=== PATIENT | female | born 1950 | race Caucasian/White ===

== ENCOUNTER → 2018-11-17 | Day surgery (SDC) | payer MEDICARE, BC ==
[~2018-11-17] MED LIST: Lactated Ringers 1,000 ML IV SCH; Propofol 200 MG/20 ML SDV IV ONE
--- NOTE | 2018-11-20 08:57 | OR ---
DATE OF OPERATION: 11/17/2018 PREOPERATIVE DIAGNOSIS: SCREENING COLONOSCOPY. POSTOPERATIVE DIAGNOSIS: SCREENING COLONOSCOPY. SURGEON: Horacio Contreras MD PROCEDURE: FULL-LENGTH COLONOSCOPY. ANESTHESIA: MAC via [employer]ER. COMPLICATIONS: None. SPECIMEN: None. FINDINGS: 1. Full-length colonoscopy. 2. Yuis-[id number]-pbrgoxph sigmoid diverticulosis. RECOMMENDATIONS: Followup colonoscopy in 10 years. INDICATIONS: The patient had a prior colonoscopy approximately 10 years ago. She is due for a 10-year followup. DESCRIPTION OF PROCEDURE: The patient was prepped and draped, placed in the left lateral decubitus position. A lubricated Olympus colonoscope was inserted and easily advanced to the cecum. Direct visualization of the ileocecal valve and appendiceal orifice was accomplished. Bowel prep was adequate. Upon withdrawal, throughout the entire length of the colon, I could find no signs of polyps, mass, ulceration, bleeding sites. No vascular abnormalities or signs of colitis. The patient has moderate to severe diverticular disease in the sigmoid and rectosigmoid regions. No inflammatory changes were seen. The rectal vault was benign. Retroflexion showed no perianal lesions. Air was suctioned. Scope was removed without complication. LION/FARA /[id number]
== END ==
LOC: CC.SDS 07:46
PROVIDERS: ATTEND Family Medicine
DX: Z12.11 Encounter for screening for malignant neoplasm of colon (principal); K57.30 Diverticulosis of large intestine without perforation or abscess without bleeding; R42 Dizziness and giddiness; E78.5 Hyperlipidemia, unspecified; K21.9 Gastro-esophageal reflux disease without esophagitis; I10 Essential (primary) hypertension; E66.9 Obesity, unspecified; Z68.30 Body mass index [BMI] 30.0-30.9, adult; Z86.39 Personal history of other endocrine, nutritional and metabolic disease; Z79.899 Other long term (current) drug therapy
CPT/HCPCS: G0121; J2704; J7120